=== PATIENT | female | born 1930 | race Caucasian/White ===

== ENCOUNTER 2018-04-11 15:53 | Inpatient (IN) | payer OTHER ==
[~2018-04-11] VITALS: Ht 152.4 cm; Wt 41.3 kg
--- NOTE | ~2018-04-11 | H ---
[facility] [address] [place] [address] HISTORY AND PHYSICAL Name: ZACH SANCHEZ Room #: 422-P ADM IN M.R.#: [id number] Admission: 04/11/18 Attend Phys: Alexei Montoya MD Discharge: Date of : [birth year] Report #: [id number] THIS REPORT FOR: //name// CC: Lg Montoya DATE OF SERVICE: 04/11/2018 REASON FOR ADMISSION: An 87-year-old female from [facility], who has acute lumbar back pain without injury. HISTORY OF PRESENT ILLNESS: This patient is well known to my service and has longstanding history of osteoporosis, scoliosis and a couple of years ago had to go through vertebroplasty for pain management and as what it sounds like she needs again today. She has not had any injury and CT imaging did not show evidence of acute fracture, but her history and physical examination certainly suggests this. PAST MEDICAL HISTORY: Noteworthy for those findings in the HPI plus previous shoulder surgery 5 years ago. She has hypertension, vertebroplasty in the past and has had cataract removal. MEDICATIONS: She takes hydrocodone at home, clonazepam, and ibuprofen. ALLERGIES: INCLUDE ASPIRIN, UNCLEAR DETAILS. FAMILY HISTORY: Noncontributory. SOCIAL HISTORY: Negative for alcohol or smoking. 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. REVIEW OF SYSTEMS: A 10-point review of systems was negative other than the chronic back pain. PHYSICAL EXAMINATION: GENERAL: Shows an awake, alert and oriented, in no acute distress. HEENT: Otherwise, negative. NECK: Supple without thyromegaly or adenopathy. CHEST: Clear. HEART: Regular rhythm without murmur. ABDOMEN: Soft and nontender. EXTREMITIES: Showed no edema. I was not able to move her due to pain. NEUROLOGIC: Stable. LABORATORY DATA: Laboratory parameters unremarkable. [facility] [address] [place] [address] HISTORY AND PHYSICAL Name: ZACH SANCHEZ Room #: 422-P [facility] IN [facility]#: [id number] Admission: 04/11/18 Attend Phys: Alexei Montoya MD Discharge: Date of : [birth year] Report #: [id number] ASSESSMENT: This is a patient with probable vertebral compression fracture and will need to talk with Interventional Radiology about MR scanning and potentially vertebroplasty. <ELECTRONICALLY SIGNED> By: Lg Ramirez MD 04/16/18 0539 [id number] [id number] Lg Ramirez MD /nt
[~2018-04-11 15:53] MED LIST: BASE, PCCA RAPID1 GM PO; CYCLOBENZAPRINE10 MG PO; DILAUDID 2 MG TA2 MG PO; FENTANYL PA50 MCG/HR TOP; FENTANYL PA50 MCG/HR TP; GABAPENTIN100 MG PO; HYDROCODONE-AP1 EAC6 PO; IBUPROFEN 200200 M1 PO; KLONOPIN1 MG PO; LASIX 20 MG TAB20 MG PO; MOBIC7.5 M1 PO; NABUMETONE 500500 M1 PO; NEURONTIN 300M300 M2 PO; NYSTATIN15 GM TOP; PERCOCET 5-3251 EACH PO; PREDNISONE 20 M20 M1 PO; PRILOSEC 20 MG20 MG PO; REGLAN10 MG PO; SYNTHROID25 MCG PO
[2018-04-11 17:56] LABS: ABSOLUTE NEUTROPHILS 9.6 thou/uL (1.4-8.2); BASOPHILS 1.4 % (0.0-2.0); EOSINOPHILS 1.4 % (0.0-3.0); HEMATOCRIT 38.1 % (37.0-47.0); HEMOGLOBIN 13.2 gm/dL (12.0-15.0); LYMPHOCYTES 8.9 % (24.0-44.0); MCH 33.8 pg (26.0-34.0); MCHC 34.7 g/dL (28.0-37.0); MCV 97.3 fL (80.0-100.0); MONOCYTES 9.7 % (1.0-8.0); PLATELET COUNT 279 thou/uL (150-400); POLYS 78.6 % (36.0-66.0); RBC 3.92 mil/uL (4.20-5.00); RDW 12.8 % (10.5-14.5); WBC 12.2 thou/uL (4.0-11.0)
[2018-04-11 18:07] LABS: CALCIUM 9.6 mg/dL (8.5-10.1); CREATININE 0.6 mg/dL (0.6-1.0); POTASSIUM 4.2 mmol/L (3.5-5.1)
[2018-04-11 19:33] LABS: URINE BILIRUBIN NEGATIVE (Negative); URINE BLOOD 1+ (Negative); URINE CLARITY CLEAR; URINE COLOR YELLOW; URINE GLUCOSE-RANDOM* NEGATIVE (Negative); URINE KETONES TRACE (Negative); URINE LEUKOCYTES-REFLEX NEGATIVE (Negative); URINE NITRITE-REFLEX NEGATIVE (Negative); URINE PROTEIN (DIPSTICK) NEGATIVE (Negative); URINE SPECIFIC GRAVITY 1.025 (1.005-1.035); URINE UROBILINOGEN 0.2 E.U./dl (0.2-1.0)
[2018-04-11 19:41] LABS: BACTERIA-REFLEX 1-9 Few /HPF (None Seen); CASTS None Seen /LPF (None Seen); CRYSTALS None Seen /LPF (None Seen); SQUAMOUS 0-3 Few /LPF (0-3); URINE RBC 0-2 Rare /HPF (0-2); URINE WBC-REFLEX None Seen /HPF (0-5)
[2018-04-11 21:56] VITALS: BP 137/61
[2018-04-11 22:11] VITALS: BP 129/59
[2018-04-11 22:27] VITALS: BP 167/84
[2018-04-12 05:15] VITALS: BP 165/96
[2018-04-12 08:00] VITALS: BP 185/71
[2018-04-12 14:06] LABS: PROTIME 10.2 Seconds (9.3-11.4)
[2018-04-12 16:16] VITALS: BP 156/58
[2018-04-12 19:28] VITALS: BP 150/60
[2018-04-13] VITALS (9 sets, daily range): BP systolic 129–181; BP diastolic 70–118
[2018-04-14 05:14] VITALS: BP 125/55
[2018-04-14 07:31] VITALS: BP 122/51
[2018-04-14 17:35] VITALS: BP 141/85
[2018-04-14 19:38] VITALS: BP 106/52
[2018-04-15 04:23] VITALS: BP 127/58
[2018-04-15 08:32] VITALS: BP 150/65
[2018-04-15 16:58] VITALS: BP 124/69
[2018-04-15 19:56] VITALS: BP 121/53
[2018-04-16 04:08] VITALS: BP 127/66
[2018-04-16 07:35] VITALS: BP 119/61
[2018-04-16 11:50] VITALS: BP 119/61
== END 2018-04-16 15:25 | DRG 517 ==
LOC: ER 15:53 → EROBS 20:30 → 4E 20:30
PROVIDERS: Physician Assistant; Radiology Diagnostic Radiology
DX: M80.08XA Age-related osteoporosis with current pathological fracture, vertebra(e), initial encounter for fracture (principal); I10 Essential (primary) hypertension; G89.29 Other chronic pain; M54.5 Low back pain; Z98.42 Cataract extraction status, left eye; Z98.41 Cataract extraction status, right eye; Z88.6 Allergy status to analgesic agent; Z79.899 Other long term (current) drug therapy
CPT/HCPCS: 10084

== ENCOUNTER 2018-06-23 14:56 | Inpatient (IN) | payer OTHER ==
[~2018-06-23] VITALS: Ht 147.3 cm; Wt 41.0 kg
[2018-06-23 15:05] VITALS: BP 166/77
[2018-06-23 15:54] LABS: ABSOLUTE NEUTROPHILS 7.2 thou/uL (1.4-8.2); BASOPHILS 1.2 % (0.0-2.0); EOSINOPHILS 1.8 % (0.0-3.0); HEMATOCRIT 36.8 % (37.0-47.0); HEMOGLOBIN 12.5 gm/dL (12.0-15.0); LYMPHOCYTES 15.5 % (24.0-44.0); MCH 32.5 pg (26.0-34.0); MCHC 33.8 g/dL (28.0-37.0); MCV 95.9 fL (80.0-100.0); MONOCYTES 11.2 % (1.0-8.0); PLATELET COUNT 291 thou/uL (150-400); POLYS 70.3 % (36.0-66.0); RBC 3.84 mil/uL (4.20-5.00); RDW 12.3 % (10.5-14.5); WBC 10.3 thou/uL (4.0-11.0)
[2018-06-23 16:01] LABS: CALCIUM 9.1 mg/dL (8.5-10.1); CREATININE 0.6 mg/dL (0.6-1.0); POTASSIUM 3.7 mmol/L (3.5-5.1)
[2018-06-23 16:08] LABS: ALBUMIN 3.1 g/dL (3.4-5.0); TOTAL BILIRUBIN 0.4 mg/dL (<0.1-1.0); TOTAL PROTEIN 7.1 g/dL (6.4-8.2)
[2018-06-23] MEDS ORDERED: NORVASC5 MG PO (17:08)
[2018-06-23] MEDS ORDERED: ZOLOFT25 MG PO (17:08)
[2018-06-23] MEDS ORDERED: CLONIDINE0.1 PO (17:09)
[2018-06-23] MEDS ORDERED: LASIX 40 MG TAB40 M2 PO (17:10)
[2018-06-23 18:13] VITALS: BP 152/67
[2018-06-23 18:34] VITALS: BP 152/67
[2018-06-23 18:47] VITALS: BP 152/67
[2018-06-23 19:00] VITALS: BP 205/102
[2018-06-24 03:35] VITALS: BP 167/81
[2018-06-24 06:07] LABS: HEMATOCRIT 33.9 % (37.0-47.0); HEMOGLOBIN 11.5 gm/dL (12.0-15.0); MCH 32.6 pg (26.0-34.0); MCHC 33.9 g/dL (28.0-37.0); MCV 96.2 fL (80.0-100.0); RBC 3.53 mil/uL (4.20-5.00); RDW 12.6 % (10.5-14.5); WBC 11.1 thou/uL (4.0-11.0)
[2018-06-24 06:32] LABS: ALBUMIN 2.6 g/dL (3.4-5.0); CALCIUM 8.2 mg/dL (8.5-10.1); CREATININE 0.3 mg/dL (0.6-1.0); POTASSIUM 3.3 mmol/L (3.5-5.1); TOTAL BILIRUBIN 0.7 mg/dL (<0.1-1.0); TOTAL PROTEIN 6.2 g/dL (6.4-8.2)
--- NOTE | 2018-06-24 06:36 | NUR ---
1954 - PT ADMITTED TO RM 454. ARRIVED VIA CART AND PULLED OVER TO BED. 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 WOUND NOTED ON LEFT CALF. PHOTOGRAPH TAKEN AND PLACED IN CHART. WOUND CARE NURSE CONSULTED. ADMISSION PROFILE, MED REC AND ASSESSMENT COMPLETED. 129 - PT HAS C/O LEFT SIDED RIB PAIN. SPOKE TO DR OLIVEIRA WHO ORDERED TRAMADOL WHICH WAS PARTIALLY EFFECTIVE. 629 - PT HAS REPEATED LEFT SIDED RIB PAIN. PT DID NOT WANT A CALL TO BE PLACED TO THE DR SHE SAYS SHE "DOESN'T LIKE TO TAKE PAIN MEDICINE." OFFERED A HEATING PAD INSTEAD, WHICH SHE ACCEPTED.
[2018-06-24 07:28] VITALS: BP 192/96
--- NOTE | 2018-06-24 08:11 | NUR ---
B/P 192/96. PAGED PHYSICIAN. LITHOGRAPHIC ETCHER DR. Gloria OLIVEIRA CALLED BACK. RESULTS READ TO HIM. PHYSICIAN STATED TO WAIT UNTIL DR. HILLS ROUNDS ON PT. WILL CONTINUE TO MONITOR PT.
--- NOTE | 2018-06-24 10:02 | NUR ---
WOUND CONSULT: PT. WAS SEEN TODAY BY DR. HERBERT AND MYSELF. PT. HAS A WOUND TO HER LEFT POSTERIOR CALF OF UNKNOWN ETIOLOGY AT THIS TIME. PT. HAS NO NOTED MEDICAL HISTORY OF DIABETIES, NO NOTED ISSUES OF VASCULAR OR ARTIRIAL COMPROMISE. THIS WOUND MAY BE TRAMATIC IN NATURE. PT. WOUND BED IS 100% COVERED WITH YELLOW AND MOIST BALCK SLOUGH AT THIS TIME. PT. WOUND HAS A SLIGHT FOUL ODOR PRESENT WITH CELLULITIS TO THIS EXTREMITY. PT. DOES REPORT TENDERNESS WITH THIS SITE. RECOMMENDATIONS: CULTURE OF THE WOUND WAS OBTAINED. SILVADENE/MORPHINE TO WOUND BED, XEROFORM, ABD, KERLIX AND TAPE, BID PT. AND STAFF NURSE WERE INSTRUCTED ON PLAN OF CARE.
[2018-06-24 11:07] VITALS: BP 141/78
[2018-06-24 14:22] VITALS: BP 117/59
--- NOTE | 2018-06-24 15:57 | NUR ---
PT ADMITTED RELATED TO CELLULITIS. CM REVIEWED CHART AND SPOKE WITH CARE TEAM. CM MET WITH PT AT BEDSIDE THIS DA. PT IS A&O X4. CM ROLE INTRODUCED. PT INDICATED SHE LIVES AT [facility]. 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 PT INDICATED SHE HAD HOME HEALTH IN THE PAST BUT CAN'T RECALL PROVIDER. PT INDICATED SHE PLANS TO RETURN HOME ONCE MEDICALLY STABLE. CM TO FOLLOW INDICATED WITH DC PLANNING.
--- NOTE | 2018-06-24 18:38 | NUR ---
ASSUMED CARE AT 0700. PT A&OX4. PT IS VERY WEAK AND IN A LOT OF PAIN WHEN GETTING UP OR TURNING. PT HAS VERY SMALL APPETITE. PT GETS UP WITH MAX ASSIST WITH USE OF GAIT BELT AND CAN WALK A FEW STEPS TO BEDSIDE COMMODE OR CHAIR. PT HAS HEATING PAD TO BACK FOR CHRONIC PAIN. PT'S LEFT LOWER LEG IS SWOLLEN AND RED. REDDNESS IS MARKED FROM ADMISSION AND IS IMPROVING. WOUND CARE DONE TO NON HEALING ULCER TO BACK OF L CALF. PT TOOK PO PAIN MEDS AND WAS ABLE TO REST AFTER LUNCH. PT VERY PLEASANT AND COOPERATIVE. FALL PRECAUTIONS IN PLACE.
[2018-06-24 19:17] VITALS: BP 125/70
[2018-06-25 03:04] VITALS: BP 152/70
[2018-06-25 07:37] VITALS: BP 151/76
--- NOTE | 2018-06-25 12:26 | H ---
[facility] [address] [place] [address] HISTORY AND PHYSICAL Name: ZACH SANCHEZ Room #: 454-P ADM IN M.R.#: [id number] Admission: 06/23/18 ������������������ Attend Phys: Juve Garcia MD Discharge: ������������������ Date of : [birth year] Report #: [id number] THIS REPORT FOR: //name// CC: Juve Linda Jan DATE OF SERVICE: 06/23/2018 CHIEF COMPLAINT: Left leg pain. HISTORY OF PRESENT ILLNESS: The patient is an 88-year-old female from [facility] sent to the Emergency Room with pain, redness and swelling to the left lower leg over the calf, with a nonhealing wound of the posterior left calf. She has been treated over the last month with initially Keflex, followed by doxycycline with no improvement. She had more pain, was unable to walk and therefore sent to the Emergency Room. PAST MEDICAL HISTORY: Hypertension. PAST SURGICAL HISTORY: None. FAMILY HISTORY: Noncontributory. 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 No chronic alcohol or tobacco use. ALLERGIES: ASPIRIN. MEDICATIONS: Amlodipine, Zoloft, clonidine and Lasix. REVIEW OF SYSTEMS: Other than leg pain, denies headache, chest pain, shortness of breath, abdominal pain, nausea, vomiting, diarrhea, constipation, dysuria or syncope. PHYSICAL EXAMINATION: VITAL SIGNS: Temperature 36.8, pulse 72, respirations 20, blood pressure 192/96 and O2 sat 97% on room air. GENERAL: She is awake and alert, in no distress. LUNGS: Clear. HEART: Regular. ABDOMEN: Soft. Normoactive bowel sounds. EXTREMITIES: There is redness circumferentially around the left calf, from the mid portion towards the ankle. There is 1+ edema and there is a quarter-sized open area in the back of the left calf. NEUROLOGIC: Intact. She is just globally weak related to chronic conditions and age. [facility] [address] [place] [address] HISTORY AND PHYSICAL Name: ZACH SANCHEZ Room #: 454-[facility] IN [facility]#: [id number] Admission: 06/23/18 ������������������ Attend Phys: Juve Garcia MD Discharge: ������������������ Date of : [birth year] Report #: [id number] LABORATORY DATA: Lab reviewed and I discussed the situation with Dr. Spears. Ultrasounds reviewed as well. ASSESSMENT: 1. Cellulitis, left lower leg. 2. Nonhealing wound, left calf. 3. Peripheral artery disease. 4. Hypertension. 5. Age-related debility. PLAN: Antibiotics continued at this point. Vancomycin given as she has failed oral antibiotics including Keflex at the facility. Cultures have been obtained and we will await those results. At this point, after talking with Dr. Spears, we will pursue antibiotic and topical wound care at this point. ��������������������������������������������� <ELECTRONICALLY SIGNED> ���������������������������������������� By: Juve Garcia MD ��������������������������������������������� 06/25/18 1226 1042 1115 Juve Garcia MD /laurel
--- NOTE | 2018-06-25 15:17 | NUR ---
WOUND FOLLOW UP: PT. WAS SEEN TODAY BY DR. NEVES AND MYSELF. PT. REPORTS LESS PAIN IN HER LEFT LEG BUT, GENERLIZED PAIN ALL OVER. PT. LEG IS LESS RED AND SWOLLEN TODAY. RECOMMENDATIONS: CONTINUE WITH CURRENT PLAN OF CARE. PT. AND STAFF NURSE WERE INSTRUCTED ON PLAN OF CARE.
[2018-06-25 15:30] VITALS: BP 154/76
--- NOTE | 2018-06-25 15:48 | NUR ---
PHYSICAIN INDICATED THAT PT WILL LIKELY REMAIN HOSPITALIZED OVER THE WEEKEND. PT WILL RETURN TO [facility] ONCE MEDICALLY STABLE. CM TO FOLLOW INDICATED WITH DC PLANNING.
--- NOTE | 2018-06-25 17:00 | NUR ---
PATIENT VERY PLEASANT ALERT AND ORIENTED. VERY SENSITIVE TO TOUCH OR MOVEMENT OF LEFT LOWER EXTREMITY. PATIENT REMAINED IN CHAIR FOR MUCH OF THE DAY. PATIENT TRANSFERED TO SENIOR SUITES IN LATE AFTERNOON.
[2018-06-25 19:19] VITALS: BP 150/71
--- NOTE | 2018-06-25 19:50 | NUR ---
PATIENT ARRIVED TO [facility] 1730.PATIENT IS ALERT AND ORIENTED X4.PATIENT WAS ABLE TO TRANFER FROM W/C TO BED WITH ASSIST X1.PATIENT HAS NO PAIN AT THIS TIME.DRESSING WAS DONE BEFORE PATIENT ARRIVED.PATIENT WAS ORIENTED TO ROOM.CALL LIGHT, PHONE, AND PERSONAL BELONGINGS ARE WITHIN REACH.
--- NOTE | 2018-06-26 03:58 | NUR ---
PATIENT ALERT AND ORIENTED X4. IV CHANGED DUE TO LEAKING. MEDICATED FOR PAIN X1. COOPERATIVE WITH CARE. LEFT LEG DRESSING CHANGED PER ORDER. RESTING QUIETLY AT TIME OF NOTE. WILL MONITOR.
[2018-06-26 07:07] LABS: HEMATOCRIT 33.1 % (37.0-47.0); HEMOGLOBIN 11.1 gm/dL (12.0-15.0); MCH 32.3 pg (26.0-34.0); MCHC 33.5 g/dL (28.0-37.0); MCV 96.6 fL (80.0-100.0); RBC 3.42 mil/uL (4.20-5.00); RDW 12.6 % (10.5-14.5)
[2018-06-26 07:16] LABS: CALCIUM 8.2 mg/dL (8.5-10.1); CREATININE 0.4 mg/dL (0.6-1.0); POTASSIUM 3.8 mmol/L (3.5-5.1)
[2018-06-26 08:15] VITALS: BP 154/65
--- NOTE | 2018-06-26 19:15 | NUR ---
ASSUMED CARE OF PATIENT AT 0715, PATIENT ALERT AND ORIENTED X 4. UP WITH ASSIST X 1 TO CHAIR. C/O PAIN WITH LEFT LOWER LEG AND LIDOCAINE PATCH TO MID BACK AREA. PATIENT RECEIVED TRAMADOL X 2 THIS SHIFT. WOUND CARE DONE AT 1655 TO LEFT LOWER LEG. PATIENT HAS LEFT FOREARM IV, RECEIVED 2 IV ANTIBIOTICS THIS SHIFT. PATIENT USES THE BEDPAN X 1 THIS SHIFT. APPETITE NOT TOO GOOD. NEW ORDERS FOR GABAPENTIN AND LABS IN AM BMP/CBC. WILL CONTINUE TO MONITOR.
[2018-06-26 19:47] VITALS: BP 112/59
--- NOTE | 2018-06-27 04:52 | NUR ---
ASSUMED CARE OF PATIENT AT 190. VSS. ASSESSMENT COMPLETED AT 2114 AND IS DOCUMENTED. LLE WOUND CARE COMPLETED AT 2099. PT TOLERATED WELL. LLE ERYTHEMIC. WOUND CULTURE RESULTS RECEIVED. DR. HILLS NOTIFIED AND NEW ORDERS RECEIVED TO D/C VANCO AND HERBN AND BEGIN MEROPENEM 500MG Q8H. PHARMASIST MODIFIED TO Q12H PER RENAL PROTOCOL. CR: 0.4. LEFT FA PIV INFILTRATED SHORTLY AFTER STARTING MEROPENEM. NEW PIV STARTED IN RIGHT AC AND INFUSED ABT WITHOUT COMPLICATION. PT PUT ON BEDPAN ONCE THIS SHIFT WITH 175 ML DARK YELLOW URINE. PT CURRENTLY SLEEPING SOUNDLY IN BED IN NO ACUTE DISTRESS. CALL LIGHT WITHIN REACH. BED LOCKED AND IN LOWEST POSITION. WCTM.
--- NOTE | 2018-06-27 05:12 | NUR ---
THIS NURSE AGREES WITH ASSESSMENT AND NOTES ON THIS PATIENT FROM [facility].
[2018-06-27 07:03] LABS: HEMATOCRIT 34.1 % (37.0-47.0); HEMOGLOBIN 11.3 gm/dL (12.0-15.0); MCHC 33.2 g/dL (28.0-37.0); MCV 96.5 fL (80.0-100.0); RBC 3.53 mil/uL (4.20-5.00); RDW 12.3 % (10.5-14.5); WBC 10.2 thou/uL (4.0-11.0)
[2018-06-27 07:13] LABS: CALCIUM 8.9 mg/dL (8.5-10.1); CREATININE 0.4 mg/dL (0.6-1.0); POTASSIUM 3.6 mmol/L (3.5-5.1)
[2018-06-27 10:13] VITALS: BP 166/78
[2018-06-27 19:25] VITALS: BP 146/87
--- NOTE | 2018-06-28 05:15 | NUR ---
PATIENT ALERT AND ORIENTED X4. DRESSING TO LOWER LEFT LEG DRY AND INTACT. CHANGED PER ORDER - PATIENT TOLERATED WELL. PLEASANT AND COOPERATIVE. POSSIBLE DISCHARGE TODAY. WILL MONITOR.
--- NOTE | 2018-06-28 10:27 | NUR ---
dp sent referral to [facility], patient is currently a resident at the facility. DP talke with Nancy at facility and she will medicare specialist referral and updates to [employer] [facility].
--- NOTE | 2018-06-28 13:47 | NUR ---
WOUND FOLLOW UP: PT. WAS SEEN TODAY BY DR. NEVES AND MYSELF. PT. WOUND IS CLINICALLY BETTER AT THIS TIME. PT. STILL HAS COMPLAINTS OF GENERALIZED PAIN ALL OVER HER BODY. RECOMMENDATIONS: CONTINUE WITH CURRENT PLAN OF CARE. PT. AND STAFF NURSE WERE INSTRUCTED ON PLAN OF CARE.
--- NOTE | 2018-06-28 14:36 | NUR ---
CARE TEAM INDICATED THAT PT IS SLOWLY PROGRESSING TOWRD OAL OF DISCHARGING HOME. CLINICAL UPDATES WERE SENT TO [facility] THIS AM. CM REQUESTED AND RECEIVED PERMISSION FOR NURSE TO ORDER PT AND OT TO WORK WITH PT. CM TO FOLLOW INDICATED WITH DC PLANNING.
--- NOTE | 2018-06-28 19:30 | NUR ---
ASSUMED CARE OF PATIENT AT 0715, PATIENT ALERT AND ORIENTED X 4. PATIENT UP WITH 2 ASSIST TO CHAIR. PATIENT C/O PAIN X 1 WITH RIGHT RIB AREA, TRAMADOL 50 MG [address] HILLS NOTIFIED OF PAIN WITH AND SOB WITH ACTIVITY, RECEIVED ORDER FOR CHEST X-RAY. PATIENT C/O CONSTIPATION, RECEIVED ORDER FOR DULCOLAX SUPP. GIVEN NO RESULTS AT END OF SHIFT. PATIENT HAS RIGHT FOREARM IV IN PLACE, PATIENT RECEIVED 1 IV ANTIBIOTIC THIS SHIFT. WOUND CARE DOEN BY WOUND CARE TEAM TODAY, LEFT LOWER LEG. PATIENT USES THE BEDPAIN WHEN IN BED, PATIENT WAS UP TO THE CHAIR THIS AM UNTIL AFTER LUNCH. PT/OT EVAL ORDERED TODAY. WILL CONTINUE TO MONITOR.
[2018-06-28 19:39] VITALS: BP 176/92
--- NOTE | 2018-06-29 04:32 | NUR ---
PATIENT ALERT AND ORIENTED X4. C/O PAIN WHEN DRESSING ON BACK OF L LEG CHANGED. WOUND BED HAS YELLOW SLOUGH, IT IS RED, WARM AND TENDER TO TOUCH. USES BEDPAN. HAD SMALL HARD STOOL FIRST PART OF SHIFT. GETS SOA WITH ANY ACTIVITY, O2 APPLIED AT 2L/NC. SLEPT OFF AND ON DURING NIGHT.
--- NOTE | 2018-06-29 08:07 | HC ---
[facility] [address] [place] [address] CONSULTATION Name: ZACH SANCHEZ Room #: 226-P [facility] IN M.R.#: [id number] Admission: 06/23/18 ������������������ Attend Phys: Juve Garcia MD Discharge: ������������������ Date of : [birth year] Report #: [id number] THIS REPORT FOR: //name// CC: Juve Linda Jan DATE OF SERVICE: 06/24/2018 CHIEF COMPLAINT: Ulceration on the left leg with surrounding cellulitis. HISTORY OF PRESENT ILLNESS: This is an 88-year-old female patient who is from [facility] who has developed an ulceration to the posterior calf on the left side. She has developed a surrounding cellulitis. She has been treated with Keflex and dicloxacillin and has failed outpatient therapy. She is admitted now for further evaluation and treatment. The patient notes some pain. She is not certain exactly when the ulceration showed up or why it developed. She has not had problems with ulcers in the past. PAST MEDICAL HISTORY: Positive for a lumbar compression fracture as well as a history of hypertension. She has undergone previous vertebroplasty, had previous cataract surgery in the past. MEDICATIONS: Include clonazepam, amlodipine, furosemide, clonidine, hydrocodone, and Zoloft. ALLERGIES: ASPIRIN. SOCIAL HISTORY: Negative for alcohol or tobacco use. She is living at [facility]. FAMILY HISTORY: Noncontributory. REVIEW OF SYSTEMS: CONSTITUTIONAL: The patient denies fever, chills, weight loss. NEUROLOGIC: The patient denies focal weakness, numbness or tingling. EYES: The patient denies any visual changes, redness or drainage. ENT: The patient denies earache, nasal drainage or sore throat. CARDIOVASCULAR: The patient denies chest pain, palpitations or diaphoresis. PULMONARY: The patient denies cough or shortness of breath. GASTROINTESTINAL: The patient denies nausea, vomiting, diarrhea or abdominal pain. ORTHOPEDIC: The patient had some chronic low back pain that is improved following vertebroplasty. She notes swelling and pain and ulceration to her left lower extremity. Other systems in a 14-point review of systems are negative. [address] [address] CONSULTATION Name: ZACH SANCHEZ Room #: 226-P [facility] IN ..#: [id number] Admission: 06/23/18 ������������������ Attend Phys: Juve Garcia MD Discharge: ������������������ Date of : [birth year] Report #: [id number] PHYSICAL EXAMINATION: VITAL SIGNS: Include temperature 36.8, pulse 72, respiratory rate 20, blood pressure 192/96. GENERAL: This is a well-developed, well-nourished female patient who appears to be in minimal distress. HEENT: Head is normocephalic. Nose and throat clear. NECK: Supple. LUNGS: Clear. ABDOMEN: Soft. Bowel sounds present. EXTREMITIES: Lower extremities demonstrate diminished yet palpable distal pulses. SKIN: [place], warm and dry. She has significant erythema to the left lower leg with warmth and swelling and drainage. There is a circular ulceration on the posterior calf that is covered with a wet eschar. I have peeled the eschar away at the bedside and I have taken a culture and sensitivity from beneath this. LABORATORY DATA: Includes arterial Dopplers, which demonstrate diffuse atherosclerotic calcific plaquing of the left lower extremity arteries with no focal stenosis or occlusions. Venous Doppler demonstrates no evidence of DVT. ADDITIONAL LABORATORY DATA: Sodium 139, potassium 3.3, chloride 104, CO2 of 24, BUN 9, creatinine 0.3, albumin 2.6. White blood cell count 11.1 with a hemoglobin of 11.5. CLINICAL IMPRESSION: 1. Ulceration, left lower extremity. Etiology is not entirely determined, this could be traumatic or possibly venous related, although it is very difficult to discern at this time. 2. Cellulitis, left lower extremity. 3. Diffuse atherosclerosis. No high-grade stenosis, left lower extremity. 4. Moderate protein-calorie malnutrition. RECOMMENDATIONS: At this point in time, I have unroofed the area of eschar and taken a culture from beneath this. I would recommend empiric IV antibiotic therapy pending culture and sensitivity results. We will use topical Silvadene, morphine, Xeroform gauze to cover the area and change twice daily. We will recommend elevation of the leg when possible. Follow clinically. If she does not have significant resolution of both the ulceration and the cellulitis, would consider angiography, although at this time, I think we could observe for improvement with local care and antibiotic therapy. She will need aggressive nutritional support. [address] [address] CONSULTATION Name: ZACH SANCHEZ Room #: 226-P [facility] IN M.R.#: [id number] Admission: 06/23/18 ������������������ Attend Phys: Juve Garcia MD Discharge: ������������������ Date of : [birth year] Report #: [id number] I appreciate being asked to see her in consultation. ��������������������������������������������� <ELECTRONICALLY SIGNED> ���������������������������������������� By: Aroldo Spears MD ��������������������������������������������� 06/29/18 0807 1006 2033 Aroldo Spears MD /nt
[2018-06-29 08:48] VITALS: BP 173/86
--- NOTE | 2018-06-29 08:53 | NUR ---
ASSUMED PT CARE AT 0700. PT AWAKE, ALERT/ORIENTED X4. REPORTS PAIN IN HER LEFT LEG TO WOUND. WOULD LIKE TRAMADOL. SKIN IS OTHERWISE INTACT. ASSESSMENT COMPLETED AND IS CHARTED. VSS. PT ALSO HAVING CONSTIPATION. OFFERED DULCOLAX SUPP. PT DECLINED AT THIS TIME. WILL CONTINUE CURRENT CARE.
--- NOTE | 2018-06-29 13:08 | NUR ---
WOUND FOLLOW UP: PT. WAS SEEN TODAY BY DR. ROGERS AND MYSELF. PT. WOUND IS CLINICALLY BETTER AT THIS TIME AND PT. REPORTS LESS PAIN IN HER LEFT LEG TODAY. RECOMMENDATIONS: CONTINUE WITH CURRENT PLAN OF CARE. PT. AND STAFF NURSE WERE INSTRUCTED ON PLAN OF CARE.
--- NOTE | 2018-06-29 14:40 | NUR ---
SW reviewed chart and spoke with nursing and attending physician. Pt is slowly progressing towards goals for discharge. Plan is for pt to return to [facility] once course of IV abx is complete and pt is medically stable. SW is following to assist as needed with discharge planning.
--- NOTE | 2018-06-29 15:48 | NUR ---
Pt seen for wound follow up. Wound clinically better per wound nurse note. Intake around 50% with Froilan supplment BID. Listed food preferences for lunch and dinner. Will order. No new wt since 06/23, requested updated wt. Changing to low risk due to appropriate nutrition interventions in place.
--- NOTE | 2018-06-29 16:06 | NUR ---
PT DOING WELL TODAY. INCREASED ACTIVITY. PT UP IN CHAIR MOST OF DAY AND TOLERATED WELL. WEANED OFF O2 TODAY SATS REMAIN IN THE 'S. WORKED WITH PHYSICAL/OCCUPATIONAL THERAPY AND TOLERATED WELL. WILL CONTINUE CURRENT CARE.
[2018-06-29 20:19] VITALS: BP 150/72
--- NOTE | 2018-06-30 04:20 | NUR ---
Patient remains A&Ox4; Swallows meds whole w/o difficulty. Remains cont. B&B; needs asst x 1 for tranafers. Ambultes w/ asst; gait unsteady. Remains on IVABT/Cellulitis to LLE; no adverse reactions noted. LFA SL noted/intact; infused ABT/flushed w/o difficulty; no blood return noted. DRSG to L calf remains C/D/I, at this time. Patient has no c/o pain or discofmort. No s/s of acute distress noted. Patient asleep in bed w/ call light/desired belongings within reach. PO fluids encouraged. Will continue to monitor.
[2018-06-30 07:29] VITALS: BP 164/71
--- NOTE | 2018-06-30 13:41 | NUR ---
SW reviewed chart and spoke with nursing and attending physician. Pt is progressing towards goals for discharge. Plan is for pt to d/c back to OP on Thursday. ABEL is following to assist as needed with discharge planning.
--- NOTE | 2018-06-30 15:10 | NUR ---
ASSUMED CARE OF PATIENT THIS MORNING. PATIENT IS A&OX4. SHE IS UP X1 ASSIST W/WALKER. SHE HAS A WEAK AND UNSTEADY GAIT WHEN AMBULATING, SHE LEANS BACK WHEN STANDING, HARD TO KEEP BALANCE. FALL PRECAUTIONS ARE IN PLACE. PATIENT VOIDS PER BSC OR BEDPAN. HERE LAST BOWEL MOVEMENT WAS THIS AFTERNOON. PATIENT FEELS A LOT STRONGER TODAY AND FEELS LIKE SHE'S ABLE TO MOVE BETTER. PATIENT WILL POSSIBLY BE DISCHARGED THURSDAY BACK TO [facility]. PATIENT HAS NOT COMPLAINED OF ANY PAIN TODAY. SHE IS CURRENTLY LYING IN BED WITH CALL LIGHT WITHIN REACH. SHE CALLS OUT APPROPRIATELY FOR ASSISTANCE.
[2018-06-30 21:09] VITALS: BP 126/64
--- NOTE | 2018-07-01 06:48 | NUR ---
Patient remains A&Ox4; Swallows meds whole w/o difficulty. Remains cont. B&B; needs asst x 1 for transfers. Utilizes the BSC or bedpan. Trace edema noted to both feet; patient encouraged to elevate BLE's as tolerated. Remains on IVABT/cellulitis to LLE; DRSG to site remains C/D/I, at this time. SL to R wrist noted and infusing/flushing w/o difficulty. Patient has no c/o pain or discomfort. No s/s of acute distress noted. Patient in bed asleep w/ call light/desired belongings within reach. Po fluids encouraged. Will continue to monitor.
[2018-07-01 07:38] VITALS: BP 128/62
[2018-07-01 10:36] LABS: HEMATOCRIT 34.7 % (37.0-47.0); HEMOGLOBIN 11.5 gm/dL (12.0-15.0); MCHC 33.3 g/dL (28.0-37.0); MCV 96.1 fL (80.0-100.0); RBC 3.6 mil/uL (4.20-5.00); RDW 12.5 % (10.5-14.5); WBC 8.4 thou/uL (4.0-11.0)
[2018-07-01 11:04] LABS: ANION GAP 9 mmol/L (7-16); BUN 12 mg/dL (7-18); CALCIUM 8.6 mg/dL (8.5-10.1); CHLORIDE 101 mmol/L (98-107); CO2 27 mmol/L (21-32); CREATININE 0.6 mg/dL (0.6-1.0); GLUCOSE 126 mg/dL (74-106); POTASSIUM 3.4 mmol/L (3.5-5.1); SODIUM 137 mmol/L (136-145); TROPONIN-I <0.06 ng/mL (<0.06)
--- NOTE | 2018-07-01 11:42 | 2DMMODE ---
[facility] [place] [address] 2 D/M-MODE ECHOCARDIOGRAM Name: ZACH SANCHEZ Room #: 226-P ADM IN .R.#: [id number] ������������� Admission: 06/23/18 ������������� Attend Phys: Shraddha Moreno Discharge: ��� ������������� ��� Date of : [birth year] Date of Service: 07/01/18 1142 �� Report #: [id number] �������� ��������������������������������������������[id number] THIS REPORT FOR: //name// APPROVED REPORT Study performed: 07/01/2018 10:45:03 EXAM: Comprehensive 2D, Doppler, and color-flow Echocardiogram Patient Location: Bedside Room #: 226 Status: routine BSA: 1.28 HR: 70 bpm BP: 128/62 mmHg Rhythm: NSR Other Information Study Quality: Good Indications Dyspnea Hypertension/HDD 2D Dimensions RVDd: 30.56 mm IVSd: 8.88 (7-11mm) LVOT Diam: 16.78 (18-24mm) LVDd: 34.02 mm PWd: 9.98 (7-11mm) Ascending Ao: 30.86 (22-36mm) LVDs: 20.50 (25-40mm) Aortic Root: 26.23 mm IVC: 15.00 mm Volumes Left Atrial Volume (Systole) Single Plane 4CH: 30.89 mL Single Plane 2CH: 39.83 mL LA ESV Index: 38.00 mL/m2 Aortic Valve AoV Peak Robert.: 1.36 m/s AO Peak Gr.: 7.38 mmHg LVOT Max P.62 mmHg LVOT Max V: 1.19 m/s CORNELL Vmax: 1.93 cm2 Mitral Valve E/A Ratio: 1.0 MV Decel. Time: 244.77 ms [facility] [place] [address] 2 D/M-MODE ECHOCARDIOGRAM Name: ZACH SANCHEZ Room #: 226-P [facility].#: [id number] ������������� Admission: 06/23/18 ������������� Attend Phys: Shraddha Moreno Discharge: ��� ������������� ��� Date of : [birth year] Date of Service: 07/01/18 1142 �� Report #: [id number] �������� ��������������������������������������������[id number] MV E Max Robert.: 1.00 m/s MV A Robert.: 0.99 m/s MV PHT: 70.98 ms IVRT: 96.89 ms Pulmonary Valve PV Peak Robert.: 0.90 m/s PV Peak Gr.: 3.31 mmHg Pulmonary Vein P Vein S: 0.35 m/s P Vein A: 0.22 m/s P Vein D: 0.35 m/s P Vein A Dur.: 83.0 msec P Vein S/D Ratio: 1.00 Tricuspid Valve TR Peak Robert.: 2.74 m/s TR Peak Gr.: 30.06 mmHg PA Pressure: 35.00 mmHg Left Ventricle The left ventricle is normal size. There is normal left ventricular wall thickness. The left ventricular systolic function is normal. The left ventricular ejection fraction is within the normal range. LVEF is 60-65%. Grade II - pseudonormal filling dynamics. Right Ventricle The right ventricle is normal size. The right ventricular systolic function is normal. Atria Left atrium is dilated. Right atrium is dilated. Aortic Valve The aortic valve is normal in structure. Aortic valve is calcified. No aortic regurgitation is present. There is no aortic valvular stenosis. Mitral Valve The mitral valve is normal in structure. Moderate mitral regurgitation. No evidence of mitral valve stenosis. Tricuspid Valve The tricuspid valve is normal in structure. There is moderate tricuspid regurgitation. The right atrial pressure is estimated at 38mmHg. There is mild pulmonary hypertension. Pulmonic Valve [address] [address] 2 D/M-MODE ECHOCARDIOGRAM Name: ZACH SANCHEZ Room #: 226-P [facility] [place] ..#: [id number] ������������� Admission: 06/23/18 ������������� Attend Phys: Shraddha Moreno Discharge: ��� ������������� ��� Date of : [birth year] Date of Service: 07/01/18 1142 �� Report #: [id number] �������� ��������������������������������������������[id number] The pulmonary valve is normal in structure. Mild pulmonic regurgitation. Great Vessels The aortic root is normal in size. IVC is normal in size and collapses >50% with inspiration. Pericardium There is no pericardial effusion. <Conclusion> The left ventricle is normal size. There is normal left ventricular wall thickness. The left ventricular systolic function is normal. Grade II - pseudonormal filling dynamics. The right ventricle is normal size. Left atrium is dilated. Right atrium is dilated. Aortic valve is calcified. Moderate mitral regurgitation. There is moderate tricuspid regurgitation. The right atrial pressure is estimated at 38mmHg. There is mild pulmonary hypertension. ��������������������������������������������� <ELECTRONICALLY SIGNED> ���������������������������������������� By: Kirit Francis MD ��������������������������������������������� 07/01/18 1142 1142 1142 Kirit Francis MD /INF
--- NOTE | 2018-07-01 12:02 | NUR ---
ABEL reviewed chart and spoke with nursing and attending physician. Pt is progressing towards goals for discharge. ABEL met with pt and Equestrian Trainer at bedside to discuss discharge plan. Plan is for pt to go to [facility] upon return until her wound heals. business planner faxed clinical info to [facility] for review. ABEL will follow up with Janet at [facility] later today. [facility] will provide transportation back to [facility] tomorrow. ABEL updated nursing and attending physician. ABEL is following to assist as needed with discharge planning.
--- NOTE | 2018-07-01 12:13 | NUR ---
DISCHARGE PLANNING. ANTICIPATED DISCHARGE IS PLANNED FOR TOMORROW. PATIENT RESIDES AT [facility]. WILL RETURN TO [facility]. CLINICAL INFORMATION FAXED TO INTAKE/MOTHER FRANTZ. WILL FACILITATE DISCHARGE ONCE DC ORDERS OBTAINED. MOTHER FRANTZ TO TRANSPORT PATIENT TO [facility] ONCE DISCHARGE COMPLETE. UNIT CM/SW AWARE. FOLLOWING TO ASSIST WITH DISCHARGE.
--- NOTE | 2018-07-01 15:08 | NUR ---
PATIENT IS A&OX4. SHE GETS UP 1 ASSIST W/WALKER. SHE HAS A SLOW GAIT AND SLUMPED POSTURE. SHE DOES NOT COMPLAIN OF ANY PAIN, MINOR DISCOMFORT WHEN LEFT POSTERIOR CALF WHEN IS TOUCHED. SHE HAD A DRESSING CHANGE THIS AFTERNOON. PATIENT WAS SOB THIS MORNING WHEN AMBULATING WITH PHYSICAL THERAPY FROM THE BATHROOM TO THE CHAIR AND HER PULSE RATE INCREASED AND OXYGEN SATURATION SLIGHTLY DECREASED. SHE WAS PUT ON 1.5L OF OXYGEN UNTIL HER SATURATION INCREASED. PHYSICIAN ORDERED A CHEST XRAY THIS MORNING, EKG, AND LABS WERE DRAWN. PATIENT BEGAN TO FELL BETTER, SHE HAD A LARGE BOWEL MOVEMENT PER [facility] AND WANTED TO LAY IN BED AFTER. SHE HAS NOT RECEIVED ANY PAIN MEDICATION. FALL PRECAUTIONS IN PLACE. PATIENT IS CURRENTLY LYING IN BED WITH CALL LIGHT WITHIN REACH. SHE CALLS OUT APPROPRIATELY FOR ASSISTANCE.
--- NOTE | 2018-07-01 16:18 | EKG ---
[address] [place] [address] ELECTROCARDIOGRAM REPORT Name: ZACH SANCHEZ Room #: 226- ADM IN M.R.#: [id number] ������������������ Admission: 06/23/18 ������������������ Attend Phys: Juve Garcia MD Discharge: ������������������ Date of : [birth year] Report #: [id number] ����������������������������������������������������������������� [id number] THIS REPORT FOR: //name// [facility] Test Date: 2018-07-01 Test Time: 10:41:06 Pat Name: ZACH SANCHEZ Department: Room: 226 Gender: F University Controller: Sammie MARTINEZ : 1930 Requested By: Juve Garcia Order Number: [id number] MD: Regulo Frank Measurements Intervals [place] Rate: 72 P: 53 VA: 125 QRS: 14 QRSD: 88 T: -4 QT: 431 QTc: 472 Interpretive Statements Sinus rhythm No significant abnormality Compared to ECG 10/13/2014 16:54:58 Atrial premature complex(es) no longer present Electronically Signed On 07-01-2018 16:17:54 FINANCIAL REPORTING ACCOUNTANT by Regulo Frank [email or web address] ��������������������������������������������� <ELECTRONICALLY SIGNED> ���������������������������������������� By: Regulo Frank MD, [facility] ��������������������������������������������� 07/01/18 1617 1041 1041 Regulo Frank MD, [facility] /EPI
[2018-07-01 18:58] VITALS: BP 140/76
--- NOTE | 2018-07-02 05:17 | NUR ---
ASSUMED CARE OF PATIENT AT 1900. VSS. ASSESSMENT COMPLETED AT 2134 AND IS DOCUMENTED. LEFT POSTERIOR CALF WOUND DRSG CHANGE COPMLETED AT 2348. PT WAS PREMEDICATED WITH TYLENOL AND TOLERATED DRSG CHANGE WELL. RIGHT FA IV PATENT AND SALINE LOCKED. IV ABT GIVEN PER JUN WITHOUT COMPLICATION. PT URINATED ONCE IN THE BEDPAN, AND HAD A COUPLE OTHER INSTANCES WHERE SHE THOUGHT SHE NEEDED TO URINATE, BUT WAS UNABLE TO INITIATE A STREAM. PT DENIED ANY CHEST PAIN OR DIFFICULTY BREATHING THIS SHIFT. PT CURRENTLY SLEEPING SOUNDLY IN BED IN NO ACUTE DISTRESS. CALL LIGHT WITHIN REACH. BED LOCKED AND IN LOWEST POSITION. WCTM.
[2018-07-02 08:50] VITALS: BP 161/80
--- NOTE | 2018-07-02 08:50 | NUR ---
PATIENT AWAKE AT THIS TIME. DENIES ANY PAIN. WANTING TO GET INTO CHAIR FOR BREAKFAST. ASSISTED TO CHAIR X1 PERSON. LUNGS CLEAR, DIMINISHED TO BASES. 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 UP WITH WALKER FOR TRANSFERS WITH GAIT BELT. DENIES ANY NAUSEA.
[2018-07-02 09:59] VITALS: BP 161/80
--- NOTE | 2018-07-02 10:00 | NUR ---
ASSISTED PATIENT TO [facility], VOIDED CLEAR YELLOW URINE. STATED AFTER TRANSFER PATIENT WAS SOB, CHECKED OXYGEN SAT, 97%. PATIENT STATED SHE WAS BETTER BEFORE SHE GOT HERE. SOME INCON. URINE IN CHAIR PRIOR TO TRANSFER TO [facility]. HAD SMALL AMT OF STOOL.
[2018-07-02] MEDS ORDERED: COZAAR100 MG PO (11:42)
[2018-07-02] MEDS ORDERED: TRAMADOL 50 MG50 MG PO (11:43)
[2018-07-02] MEDS ORDERED: CIPRO250 M1 PO (11:43)
--- NOTE | 2018-07-02 11:58 | NUR ---
DISCHARGE NOTE: SW reviewed chart and spoke with nursing and attending physician. Pt is medically stable for discharge back to [facility] today. Pt will go to the [facility] at OP for continued wound care. ABEL met with pt at bedside to discuss discharge plan. Pt is aware and agreeable with discharge plan. [facility] will provide transportation this afternoon. landscape architect and planner to facilitate. SW is available to assist should needs arise.
--- NOTE | 2018-07-02 12:11 | NUR ---
PATIENT WILL D/C TODAY. WOUND TEAM HERE TO SEE LEFT CALF. APPLIED SILVADENE WITH MORPHINE, WOUND CLEANSED PRIOR TO OINT. XEROFORM OVER OINT, THEN COVERED WITH OPTIFOAM DRESSING, SECURED WITH GAUZE AND TAPE.
--- NOTE | 2018-07-02 13:20 | NUR ---
WOUND FOLLOW UP: PT. WAS SEEN TODAY BY DR. NEVES AND MYSELF. PT. WOUND IS CLINICALLY BETTER. DISCHARGE PLANNING WAS DISCUSSED AT THIS TIME. RECOMMENDATIONS: CONTINUE WITH CURRENT PLAN OF CARE. PT. AND STAFF NURSE WERE INSTRUCTED ON PLAN OF CARE.
--- NOTE | 2018-07-02 14:40 | NUR ---
DISMISSED PT IN STABLE CONDITION VIA WHEELCHAIR TO HOME WITH HOME HEALTH.
--- NOTE | 2018-07-06 10:04 | D ---
[facility] [address] [place] [address] DISCHARGE SUMMARY Name: ZACH SANCHEZ Room #: 226-P [facility] IN M.R.#: [id number] Admission: 06/23/18 ������������������ Attend Phys: Juve Garcia MD Discharge: 07/02/18 ������������������ Date of : [birth year] Report #: [id number] THIS REPORT FOR: //name// CC: Juve Linda Jan FINAL DIAGNOSES: 1. Cellulitis of the left lower leg. 2. Peripheral artery disease. 3. Wound of the left lower leg. 4. Hypertension. 5. Mild mitral regurgitation. 6. Mild pulmonary hypertension. HOSPITAL COURSE: The patient was admitted with a wound in the left leg. Doppler ultrasound showed diffuse peripheral artery disease, but no discrete lesions to proceed with angioplasty. The wound service managed her wound and antibiotics were ordered. The culture grew gram-negative rods and she was switched to meropenem. This improved her pain, swelling and redness significantly. She had elevated blood pressure, losartan was added. She was complaining of shortness of breath with activity at times; however, she never desaturated. Doppler ultrasound of the legs were negative. EKG was negative. Echo showed some mild valvular regurgitation and mild pulmonary hypertension. She also has noted to have cervical kyphosis of the spine and hunched posture and so, her symptoms may be a combination of multiple factors. A chest x-ray did not reveal an infiltrate. PHYSICAL EXAMINATION: GENERAL: On the day of discharge, she was awake and alert with stable vital signs, sitting in the bedside chair. LUNGS: Clear. HEART: Regular. ABDOMEN: Soft, normoactive bowel sounds. EXTREMITIES: There is just trace edema in the left leg. There is no erythema. The wound was dressed. O2 sats were mid 90s on room air. DISPOSITION: She will return to [facility]. She will have home health for wound care and therapies. She will have tramadol, Cipro, Tylenol, losartan and prescriptions provided. ��������������������������������������������� <ELECTRONICALLY SIGNED> ���������������������������������������� By: Juve Garcia MD ��������������������������������������������� 07/06/18 1004 1204 1431 Juve Garcia MD /nt
== END 2018-07-02 14:42 | DRG 602 ==
LOC: ER 14:56 → EROBS 17:00 → 4W 17:00 → SICU 06-25 17:41
PROVIDERS: Nurse Practitioner; ADMIT Internal Medicine Geriatric Medicine
DX: L03.116 Cellulitis of left lower limb (principal); E43 Unspecified severe protein-calorie malnutrition; E44.0 Moderate protein-calorie malnutrition; L97.929 Non-pressure chronic ulcer of unspecified part of left lower leg with unspecified severity; Z68.1 Body mass index [BMI] 19.9 or less, adult; I73.9 Peripheral vascular disease, unspecified; I10 Essential (primary) hypertension; R07.1 Chest pain on breathing; I70.90 Unspecified atherosclerosis; I34.0 Nonrheumatic mitral (valve) insufficiency; I27.20 Pulmonary hypertension, unspecified; Z98.42 Cataract extraction status, left eye; Z98.41 Cataract extraction status, right eye; Z88.6 Allergy status to analgesic agent; Z79.899 Other long term (current) drug therapy
CPT/HCPCS: 10040; 15002

== ENCOUNTER → 2018-07-14 | Outpatient (CLI) | payer OTHER ==
[~2018-07-14] MED LIST changes: +CIPRO250 M1 PO; +CLONIDINE0.1 PO; +COZAAR100 MG PO; +LASIX 40 MG TAB40 M2 PO; +NORVASC5 MG PO; +TRAMADOL 50 MG50 MG PO; +ZOLOFT25 MG PO
== END ==
LOC: HYPER 07-13 08:58
DX: I70.242 Atherosclerosis of native arteries of left leg with ulceration of calf (principal); L97.222 Non-pressure chronic ulcer of left calf with fat layer exposed; I27.20 Pulmonary hypertension, unspecified; I10 Essential (primary) hypertension; F32.9 Major depressive disorder, single episode, unspecified

== ENCOUNTER → 2018-07-28 | Outpatient (CLI) | payer OTHER | LOC: HYPER 06:48 | DX: I70.242 Atherosclerosis of native arteries of left leg with ulceration of calf (principal); L97.822 Non-pressure chronic ulcer of other part of left lower leg with fat layer exposed; I27.20 Pulmonary hypertension, unspecified; I10 Essential (primary) hypertension; F32.9 Major depressive disorder, single episode, unspecified ==

== ENCOUNTER → 2018-08-20 | Outpatient (CLI) | payer OTHER | LOC: HYPER 08-18 06:37 | DX: I70.242 Atherosclerosis of native arteries of left leg with ulceration of calf (principal); L97.222 Non-pressure chronic ulcer of left calf with fat layer exposed; L03.116 Cellulitis of left lower limb; I27.20 Pulmonary hypertension, unspecified; I10 Essential (primary) hypertension; F32.9 Major depressive disorder, single episode, unspecified; R54 Age-related physical debility ==

== ENCOUNTER → 2018-09-09 | Outpatient (CLI) | payer OTHER | LOC: HYPER 06:43 | DX: I70.242 Atherosclerosis of native arteries of left leg with ulceration of calf (principal); L97.222 Non-pressure chronic ulcer of left calf with fat layer exposed; L03.116 Cellulitis of left lower limb; I27.20 Pulmonary hypertension, unspecified; I10 Essential (primary) hypertension; R54 Age-related physical debility; F32.9 Major depressive disorder, single episode, unspecified ==

== ENCOUNTER → 2018-10-11 | Outpatient (CLI) | payer OTHER | LOC: HYPER 10-07 08:58 | DX: I70.242 Atherosclerosis of native arteries of left leg with ulceration of calf (principal); L97.222 Non-pressure chronic ulcer of left calf with fat layer exposed; L03.116 Cellulitis of left lower limb; I27.20 Pulmonary hypertension, unspecified; I10 Essential (primary) hypertension; R60.0 Localized edema; R54 Age-related physical debility; F32.9 Major depressive disorder, single episode, unspecified ==